=== PATIENT | male | born 2000 | race Two or more races ===

== ENCOUNTER 2018-01-23 14:19 | Emergency (ER) | payer OTHER ==
[2018-01-23 14:27] VITALS: RESP 18
--- NOTE | 2018-01-23 14:42 | EDPHY ---
H & P Smoking Status: Current every day smoker Time Seen by Provider: 01/23/18 14:33 HPI/ROS: CHIEF COMPLAINT: "I just want to have my right shoulder checked out" HISTORY OF PRESENT ILLNESS: 17-year-old male with prior remote history of right shoulder dislocation without surgery states that 10 days ago he raised his right arm and felt pain in the right shoulder. He did not feel it dislocate. This pain has by and large resolved. He has full range of motion currently. Step-off. No trauma or fall. No paresthesia. PHYSICAL EXAM (Prior to examination, patient consented to physical exam, hands were washed and my usual and customary physical exam procedures followed) 1) GENERAL: Well-developed, well-nourished, alert and oriented. Appears to be in no acute distress. 2) HEAD: Normocephalic, atraumatic 3) HEENT: Sclera anicteric. 4) NECK: Full range of motion, no meningeal signs. 5) LUNGS: Breathing comfortably 6) MUSCULOSKELETAL: Right upper extremity: Normal anatomic landmarks. No step -off. No palpable abnormality. No crepitus. No pain with range of motion. No pain with palpation. No effusion. Normal coloration. Remainder of right upper extremity is nontender with radial ulnar median nerve function intact distally. (Bienvenido White) Constitutional: Initial Vital Signs Temperature (C) 36.6 C 01/23/18 14:24 Heart Rate 68 01/23/18 14:24 Respiratory Rate 18 01/23/18 14:24 Blood Pressure 134/87 H 01/23/18 14:24 O2 Sat (%) 97 01/23/18 14:24 O2 Delivery Mode Room Air Allergies/Adverse Reactions: Penicillins Allergy (Verified 01/23/18 14:23) Home Medications: Medication Instructions Recorded NK [No Known Home Meds] 01/23/18 MDM/Departure - MDM ED Course/Re-evaluation: 2:42 p.m.: At this time I do not identify definitive indication for emergent MRI. We discussed obtain x-ray from the ER. However as he the is currently asymptomatic with no visible or palpable abnormality, no signs of dislocation, full pain-free range of motion, I do not think this is definitively occur emergently indicated. Discussed with patient and he is in agreement he prefers to follow up directly with orthopedics and have any further imaging performed by them, if indicated. (Bienvenido White) - Depart Disposition: Home, Routine, Self-Care Clinical Impression: Right shoulder injury Qualifiers: Encounter type: initial encounter Qualified Code(s): S49.91XA - Unspecified injury of right shoulder and upper arm, initial encounter Condition: Good Instructions: Shoulder Dislocation (ED) Additional Instructions: Return to the ER immediately if you experience discoloration, have worsening pain, numbness, tingling, or any other symptoms that concern you. Referrals: Serafin Mcfarland MD [Medical Doctor] - 2-3 days, call for appt. (Dr Mcfarland is an orthopedic surgeon)
[2018-01-23 15:15] VITALS: BP 122/77; PULSE 64; TEMP 98.6; O2SAT 98
== END 2018-01-23 15:28 | disposition home or self-care (01) ==
DX: S49.91XA Unspecified injury of right shoulder and upper arm, initial encounter (principal); F17.200 Nicotine dependence, unspecified, uncomplicated; X58.XXXA Exposure to other specified factors, initial encounter; Y93.89 Activity, other specified

== ENCOUNTER 2018-12-20 15:47 | Emergency (ER) | payer OTHER ==
[2018-12-20 17:13] VITALS: BP 138/81
[2018-12-20] MEDS ORDERED: NS 1,000 ML IV ONE (17:19)
--- NOTE | 2018-12-20 17:23 | EDPHY ---
H & P Stated Complaint: In [facility] until 12/10/18, fever/diarrhea x4D. Time Seen by Provider: 12/20/18 16:37 HPI/ROS: CHIEF COMPLAINT: Fever, diarrhea HISTORY OF PRESENT ILLNESS: 18-year-old male presents with fever and diarrhea. Onset of diarrhea 4 days ago. The diarrhea is watery and frequent, up to 10 episodes daily. Now feels dehydrated and thirsty. Also has episodes of rapid heart rate, which he is particularly concerned about. No abdominal pain, vomiting, dizziness or syncope. REVIEW OF SYSTEMS: complete 10 point ROS reviewed and is negative except for the noted elements in the HPI - Personal History Current Tetanus/Diphtheria Vaccine: Unsure - Medical/Surgical History Hx Asthma: No Hx Chronic Respiratory Disease: No Hx Diabetes: No Hx Cardiac Disease: No Hx Renal Disease: No Hx Cirrhosis: No Hx Alcoholism: No Hx HIV/AIDS: No Hx Splenectomy or Spleen Trauma: No Other PMH: prob with r shoulder - Social History Smoking Status: Current every day smoker - Physical Exam Exam: General Appearance: Alert, pleasant, well-appearing Eyes: Pupils equal and round, no conjunctival pallor ENT, Mouth: Mucous membranes moist Neck: Normal inspection Respiratory: Lungs are clear to auscultation Cardiovascular: Regular rate and rhythm Gastrointestinal: Abdomen is soft and nontender Neurological: A&O, nonfocal, normal gait Skin: Warm and dry Extremities: Normal inspection Psychiatric: Mood and affect normal Constitutional: Initial Vital Signs Temperature (C) 36.9 C 12/20/18 15:52 Heart Rate 96 12/20/18 15:52 Respiratory Rate 18 12/20/18 15:52 Blood Pressure 149/82 H 12/20/18 15:52 O2 Sat (%) 96 12/20/18 15:52 O2 Delivery Mode Room Air Allergies/Adverse Reactions: Penicillins Allergy (Verified 12/20/18 15:52) Home Medications: Medication Instructions Recorded NK [No Known Home Meds] 01/23/18 Medical Decision Making ED Course/Re-evaluation: This patient presents with diarrhea and dehydration. IV normal saline 1 L given for dehydration. environmental monitoring technician revealed NSR throughout, no tachycardia or dysrhythmia. Suspect infectious diarrhea. GI pathogen panel pending on discharge. Pt will c/b for results. Encouraged increased fluids, bland diet, imodium as needed. Warning signs discussed. - Data Points Laboratory Results: Laboratory Results 12/20/18 17:30 12/20/18 17:30 Microbiology Results: MICROBIOLOGY 12/20/18 18:00 Stool Gastrointestinal Tract Panel (PCR) - Final No Organism Detected By Pcr Medications Given: Discontinued Medications Sodium Chloride (Ns) 1,000 mls @ 0 mls/hr IV EDNOW ONE; Wide Open PRN Reason: Protocol Stop: 12/20/18 17:20 Last Admin: 12/20/18 17:30 Dose: 1,000 mls Departure - Departure Disposition: Home, Routine, Self-Care Clinical Impression: Infectious diarrhea in adult patient Condition: Fair Instructions: Acute Diarrhea (ED) Referrals: NONE *PRIMARY CARE P,. [Primary Care Provider] - As per Instructions
[2018-12-20 17:41] LABS: PLATELET COUNT 197 10^3/uL (150-400)
== END 2018-12-20 19:05 | disposition home or self-care (01) ==
DX: R19.7 Diarrhea, unspecified (principal); E86.0 Dehydration; F17.200 Nicotine dependence, unspecified, uncomplicated; Z88.0 Allergy status to penicillin